=== PATIENT | male | born 1960 | race Caucasian/White ===

== ENCOUNTER 2020-05-17 08:37 | Day surgery (SDC) | payer OTHER ==
[~2020-05-17] VITALS: Ht 190.5 cm; Wt 147.0 kg
[~2020-05-17 08:37] MED LIST: APPLE CIDER VI1 EAC1 PO; IBUPROFEN800 MG PO; K-TAB ER20 MEQ PO; LISINOPRIL-HCT1 EAC2 PO; NORCO 5-325 TA1 EACH PO
--- NOTE | 2020-05-17 10:37 | NUR ---
05/17/20 1037 Sheets,Ilsa 1032 PT ARRIVED TO PACU ON 3L VIA NC, VSS. PT WAKES EASILY TO VERBAL STIMULI AND DENIES CONCERNS.
--- NOTE | 2020-05-17 14:55 | OR ---
[facility] [address], [place] [address] Signed DATE OF OPERATION: 05/17/2020 SURGEON: Solange Vee MD PREOPERATIVE DIAGNOSIS: Screening. POSTOPERATIVE DIAGNOSES: 1. Single left-sided diverticulum. 2. Moderate internal and external hemorrhoids. 3. Long redundant colon. PROCEDURE: Colonoscopy without biopsy to hepatic flexure. ESTIMATED BLOOD LOSS: None. INDICATIONS: Ramón is a 60-year-old gentleman at 6 feet 3 inches, 256 pounds with a body mass index of 44.6. He was referred to me for his initial screening colonoscopy. He has no lower GI complaints. There is no family history of colon cancer or polyps. I had met with Ramón in the office and gave him a pamphlet on colonoscopy. We discussed the nature of the test along with the risks including, but not limited to gas bloating, crampy abdominal pain, bleeding, perforation requiring surgery, and missed diagnosis. We also discussed the need for IV conscious sedation. He had expressed understanding and wished to proceed. DESCRIPTION OF PROCEDURE: Ramón was taken into our endoscopy suite, placed in the left lateral decubitus position. He was given a total of 10 mg of Versed and 150 mcg of fentanyl to cover the case. A digital rectal exam was performed and he has moderate circumferential external hemorrhoids. His prostate is mildly enlarged and mildly indurated. The adult colonoscope was introduced and advanced under direct visualization of camera. It traveled through a long redundant left colon around to what we felt was the hepatic flexure. We used extra sedation and abdominal compression so forth, we never could get the scope to travel down the right colon. Consequently, Ramón would need a barium enema to complete his evaluation. The scope was slowly withdrawn. His prep was good. We saw just a single diverticulum up the left colon. There were no polyps visualized. The rectum was unremarkable. Upon retroflexion of scope, he has moderate internal Electronically Signed By: SOLANGE VEE MD 05/17/20 1455 PATIENT NAME: RAMÓN BAI OPERATIVE REPORT DATE OF : 56 REPORT #: [id number] PHYSICIAN: SOLANGE VEE MD PCP: ROMARIO ANAND DO REPORT IS CONFIDENTIAL AND NOT TO BE RELEASED WITHOUT AUTHORIZATION [facility] [address], [place] [address] Signed hemorrhoids as well. After this, the gas was suctioned out and the colonoscope removed. Ramón tolerated this procedure quite well. RECOMMENDATIONS: Ramón will follow up my office in 7 to 14 days to review the results. He will need a barium enema as well. Solange Vee MD ALB/MODL /[id number] cc: MD Solange St MD Copies: YA TABOR DMD, ANDREW L MD ~ Electronically Signed By: SOLANGE VEE MD 05/17/20 1455 PATIENT NAME: RAMÓN BAI OPERATIVE REPORT DATE OF : 56 REPORT #: [id number] PHYSICIAN: SOLANGE VEE MD PCP: ROMARIO ANAND DO REPORT IS CONFIDENTIAL AND NOT TO BE RELEASED WITHOUT AUTHORIZATION
== END 2020-05-17 11:25 | disposition home or self-care (01) ==
LOC: DS 08:37 → OPS 08:37 → DS 09:45 → OPS 09:45
PROVIDERS: Colon & Rectal Surgery
PROC: 0DJD8ZZ Inspection of Lower Intestinal Tract, Via Natural or Artificial Opening Endoscopic (ICD-10-PCS; principal; 2020-05-17 09:45)
DX: Z12.11 Encounter for screening for malignant neoplasm of colon (principal); K64.8 Other hemorrhoids; K64.4 Residual hemorrhoidal skin tags; K57.30 Diverticulosis of large intestine without perforation or abscess without bleeding; I10 Essential (primary) hypertension; Z79.899 Other long term (current) drug therapy
CPT/HCPCS: 99153; G0500; J2250; J3010; J7121